=== PATIENT | female | born 2005 | race Caucasian/White ===

== ENCOUNTER → 2025-04-21 10:29 | Outpatient (CLI) | payer OTHER, SELFPAY ==
[2025-04-21 10:59] LABS: Add Manual Diff / Slide Review NO; Basophils Absolute Auto 0 /uL (0-100); Basophils Percent Auto 0.4 % (0-2); Eosinophils Absolute Auto 200 /uL (0-450); Hematocrit 40.1 % (36-46); Hemoglobin 13.6 g/dL (12.0-16.0); Lymphocytes Absolute Auto 2100 /uL (1100-4500); Lymphocytes Percent Auto 34.8 % (25-40); Mean Corpuscular HGB Conc 33.9 % (30-36); Mean Corpuscular Hemoglobin 30.8 PG (26-34); Mean Corpuscular Volume 90.7 fL (80-100); Monocytes Absolute Auto 700 /uL (0-900); Monocytes Percent Auto 11.3 % (3-14); Neutrophils Absolute Auto 3000 /uL (1500-7000); Neutrophils Percent Auto 50.5 % (50-75); Platelet Count 315 X10^3/uL (150-400); Red Blood Cell Count 4.42 X10^6/uL (4.0-5.2); Red Cell Distribution Width 13.1 % (11.6-14.8)
[2025-04-21 11:02] LABS: Appearance Urine UA SL CLOUDY; Bilirubin Urine UA NEGATIVE (NEGATIVE); Color Urine UA YELLOW; Glucose Urine UA NEGATIVE (Negative); Ketones Urine UA NEGATIVE (NEGATIVE); Leukocyte Esterase Urine UA 1+ (NEGATIVE); Nitrite Urine UA NEGATIVE (Negative); Occult Blood Urine UA NEGATIVE (Negative); Protein Urine UA NEGATIVE (Negative); Specific Gravity Urine UA <=1.005 (1.000-1.035); Urobilinogen Urine UA 0.2 E.U./dL (0.2)
[2025-04-21 11:05] LABS: Bacteria Urine Moderate (10-30); RBC Urine None Seen (0-5/HPF); Squamous Epithelial Cell Urine None Seen (0-5/HPF); Urine Volume 10mL (spun); WBC Urine 1-5/HPF (0-5/HPF)
[2025-04-21 12:07] LABS: Hepatitis B Surface Antigen NEGATIVE s/c (NEGATIVE)
[2025-04-21 12:25] LABS: HIV 1 & 2 Ab/Ag 4th Gen Combo NEGATIVE (NEGATIVE); Hep C Virus Ab w/Reflex Quant NEGATIVE s/c (NEGATIVE)
[2025-04-21 14:49] LABS: Rubella Antibody IgG 47.1 IU/mL (>15)
[2025-04-22 10:08] LABS: Varicella IgG Antibody Reactive (Non Reactive)
== END ==
PROVIDERS: Referring Provider Family Medicine; Visit Provider Family Medicine
DX: Z34.90 Encounter for supervision of normal pregnancy, unspecified, unspecified trimester (principal)
CPT/HCPCS: 36415; 80055; 81003; 81015; 86787; 86803; 86850; 86900; 86901; 87086; 87389

== ENCOUNTER → 2025-09-13 09:22 | Outpatient (CLI) | payer OTHER, SELFPAY ==
[2025-09-13 11:05] LABS: Add Manual Diff / Slide Review NO; Hematocrit 37.1 % (36-46); Hemoglobin 12.9 g/dL (12.0-16.0); Lymphocytes Absolute Auto 2200 /uL (1100-4500); Mean Corpuscular HGB Conc 34.7 % (30-36); Mean Corpuscular Hemoglobin 32.0 PG (26-34); Mean Corpuscular Volume 92.2 fL (80-100); Platelet Count 272 X10^3/uL (150-400)
[2025-09-13 11:22] LABS: GTT (PREG) 1 Hour PP 50gm Dose 110 mg/dL (76-139)
== END ==
PROVIDERS: Referring Provider Family Medicine; Visit Provider Family Medicine
DX: Z34.93 Encounter for supervision of normal pregnancy, unspecified, third trimester (principal); Z3A.28 28 weeks gestation of pregnancy
CPT/HCPCS: 36415; 82950; 85025

== ENCOUNTER 2025-10-13 20:12 | Emergency (ER) | payer OTHER, SELFPAY ==
[2025-10-13] VITALS (8 sets, daily range): BP systolic 111–133; BP diastolic 70–95; PULSE 74–107; RESP 15–23; TEMP 37; O2SAT 96–98; BMI 29.9
--- NOTE | 2025-10-13 20:25 | ED_ITS ---
HPI - Abdominal Pain General Chief Complaint: Nausea/Vomiting/Diarrhea Stated Complaint: vomiting blood, 45 minutes Time Seen by Provider: 10/13/25 20:16 History of Present Illness HPI narrative: 19-year-old 34 weeks estimated due date November 24 presents with nonbilious blood-tinged vomit that progressed initially as bright to being darker for the last 45 minutes. She reports having diarrhea last week but that has since resolved. Patient denies any loss of fluid, passing blood clot, or vaginal bleeding, fever, chills, back pain, abdominal pain, chest pain, shortness of breath, dyspnea on exertion. She is taking a multivitamin during the course of this but is not on any other medications or supplements. She has no other symptoms at this time. Other than what is stated 14 point review of system is negative. Related Data Previous Rx's ?Medication ?Instructions ?Recorded vit no.95-ferrous 1 tab PO DAILY #90 tabs 04/04 fumarate 28 mg-folic acid 800 mcg tablet ondansetron HCl 4 mg tablet 4 mg PO Q8H PRN nausea and 10/13/25 vomiting #30 tabs Allergies Allergy/AdvReac Type Severity Reaction Status Date / Time No Known Drug Allergies Allergy Verified 10/13/25 20:24 Review of Systems Review of Systems ROS Unobtainable: All systems reviewed & are unremarkable except as noted in HPI and below Patient History Surgical History [place] teeth extracted Family History Mother Abnormal mammogram Father Hypertension Grandmother Diabetes mellitus Depression Anxiety Bipolar disorder Aunt Bipolar disorder Family/Other Bipolar disorder Social History marital status: number of children: 0 household members: spouse lives independently: Yes caregiver/support person: No housing: house pets and animals: Yes (dog) education level: college occupational status: student 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) special gladys needs: No travel history: over 6 months ago seatbelt use: sometimes helmet use: No (counseled on this) water heater temp set < 120 deg: Yes working smoke detector in home: Yes fire extinguisher in home: Yes carbon monox detector in home: Yes firearms in home: Yes firearms unloaded and locked: Yes do you feel safe at home: Yes Smoking Status: Never smoker Tobacco: How many years used: 4 quit status: has quit before second hand exposure: No alcohol intake: former substance use type: marijuana during the past year weight has: decreased > 10 lbs well-balanced diet: daily or most days daily servings fruits/ve or more times/day caffeine: Yes (down to single cup coffee in AM since becoming ) Type(s) of exercise: walking and resistance training frequency: 3-4 times per week Exam Narrative Exam Narrative: GENERAL: [19] year old patient appears stated age. Well-developed patient, in mild distress. HEAD: Atraumatic. Normocephalic. EYES: Pupils equal round and reactive. Extraocular motions intact. No scleral icterus. No injection or drainage. ENT: Nose without bleeding, purulent drainage. Throat without erythema, tonsillar hypertrophy or exudate. Airway patent. NECK: Trachea midline. Non tender CARDIOVASCULAR: Regular rate and rhythm without murmurs, gallops, or rubs. RESPIRATORY: Clear to auscultation. Breath sounds equal bilaterally. No wheezes, rales, or rhonchi. GASTROINTESTINAL: Abdomen soft, non-tender, nondistended. EXTREMITIES: No edema or joint tenderness. BACK: Nontender without deformity or crepitance. No flank tenderness. NEURO: AOx3. SKIN: No rash or erythema of visible areas Initial Vital Signs Initial Vital Signs: Vital Signs Pulse Rate 100 H 10/13/25 20:19 Pulse Oximetry 98 10/13/25 20:19 Course Orders Ordered: ED Orders 10/13/25 20:25 CBC Auto Diff [Complete Blood Count AUTO DIFF] Stat CMP [Comprehensive Metabolic Panel] Stat PT [Prothrombin Time INR] Stat Famotidine (Famotidine 20 Mg/2 Ml Vial) 20 mg IV NOW [place] Discontinued Medications Ondansetron HCl (Ondansetron 4 Mg/2 Ml Inj) 4 mg IV NOW ONE Stop: 10/13/25 20:28 Last Admin: 10/13/25 20:36 Dose: 4 mg Documented By: [facility] Vital Signs Vital signs: Vital Signs - 8 hr 10/13/25 20:19 10/13/25 20:20 10/13/25 20:20 Temperature Pulse Rate 100 H 103 H Respiratory Rate Blood Pressure 133/95 H Pulse Oximetry 98 98 Oxygen Delivery Method 10/13/25 20:24 10/13/25 20:30 10/13/25 20:32 Temperature 98.6 F Pulse Rate 107 H 88 Respiratory Rate 20 Blood Pressure 133/95 H 117/83 Pulse Oximetry 98 96 Oxygen Delivery Method Room Air 10/13/25 20:32 Temperature Pulse Rate 97 H Respiratory Rate 17 Blood Pressure Pulse Oximetry 96 Oxygen Delivery Method Room Air MDM - Abdominal Pain Lab Data 10/13/25 20:25 10/13/25 20:25 Labs: Lab Results 10/13/25 Range/Units 20:25 WBC 10.7 (4.5-11.0) X10^3/uL RBC 4.40 (4.0-5.2) X10^6/uL Hgb 13.9 (12.0-16.0) g/dL Hct 40.0 (36-46) % MCV 91.1 (80-100) fL MCH 31.7 (26-34) PG MCHC 34.8 (30-36) % RDW 12.9 (11.6-14.8) % Plt Count 261 (150-400) X10^3/uL Neut % (Auto) 54.9 (50-75) % Lymph % (Auto) 30.5 (25-40) % Valley % (Auto) 11.9 (3-14) % Eos % (Auto) 1.9 L (2-4) % Baso % (Auto) 0.8 (0-2) % Neut # (Auto) 5900 (6469-2320) /uL Lymph # (Auto) 3300 (5414-5497) /uL Valley # (Auto) 1300 H (0-900) /uL Eos # (Auto) 200 (0-450) /uL Baso # (Auto) 100 (0-100) /uL PT 10.0 (9.4-12.5) SECONDS INR 0.9 (0.9-1.3) Sodium 135 L (137-145) mmol/L Potassium 3.9 (3.4-5.1) mmol/L Chloride 107 (98-107) mmol/L Carbon Dioxide 20 L (22-32) mmol/L BUN 10 (7-17) mg/dL Creatinine 0.59 (0.52-1.04) mg/dL Estimated GFR > 60 (>60) mL/min BUN/Creatinine Ratio 16.9 (6-22) Glucose 91 (70-99) mg/dL Calcium 8.8 (8.4-10.2) mg/dL Total Bilirubin 0.2 (0.2-1.3) mg/dL AST 31 (14-36) IU/L ALT 27 (<35) IU/L Alkaline Phosphatase 110 (38-126) U/L Total Protein 6.8 (6.3-8.2) g/dL Albumin 3.6 (3.5-5.0) g/dL Globulin 3.2 (1.7-4.1) g/dL Albumin/Globulin Ratio 1.1 (1.0-2.8) MDM Narrative Medical decision making narrative: All lab work, vital signs, nurse triage note, medication list, previous ER visits, and all imaging studies reviewed. WBC 10.7 hemoglobin 13.9 platelet 261 INR point Na 135 potassium 3.9 chloride 107 CO2 20 BUN 10 creatinine 0.59. Patient given Zofran and Pepcid here. NST reactive Discharge Plan Departure Clinical Impression: Nausea & vomiting Instructions: Nausea and Vomiting-Adult Activity Restrictions/Additional Instructions: Return with new or worsening symptoms. Keep hydrated. Follow up with OBGYN at your next scheduled appointment. Take medicine as directed. Clear liquid diet advance as tolerated Prescriptions: New ondansetron HCl 4 mg tablet 4 mg PO Q8H PRN (Reason: nausea and vomiting) Qty: 30 0RF No Action PNV no.95-ferrous fumarate-FA 28 mg iron- 800 mcg tablet 1 tab PO DAILY Qty: 90 3RF Referrals: ProviderBenito [Primary Care Provider, [facility]]
[2025-10-13 20:35] LABS: Add Manual Diff / Slide Review NO; Hematocrit 40.0 % (36-46); Hemoglobin 13.9 g/dL (12.0-16.0); Lymphocytes Absolute Auto 3300 /uL (1100-4500); Mean Corpuscular HGB Conc 34.8 % (30-36); Mean Corpuscular Hemoglobin 31.7 PG (26-34); Mean Corpuscular Volume 91.1 fL (80-100); Platelet Count 261 X10^3/uL (150-400)
[2025-10-13] MEDS: ONDANSETRON 4 MG/2 ML INJ IV (20:36)
[2025-10-13 20:42] LABS: INR 0.9 (0.9-1.3); Prothrombin Time 10.0 SECONDS (9.4-12.5)
[2025-10-13 20:54] LABS: Alanine Aminotransferase 27 IU/L (<35); Albumin 3.6 g/dL (3.5-5.0); Albumin Globulin Ratio 1.1 (1.0-2.8); Alkaline Phosphatase 110 U/L (38-126); Blood Urea Nitrogen 10 mg/dL (7-17); Calcium 8.8 mg/dL (8.4-10.2); Carbon Dioxide 20 mmol/L (22-32); Chloride 107 mmol/L (98-107); Estimated Glomerular Filt Rate > 60 mL/min (>60); Globulin 3.2 g/dL (1.7-4.1); Glucose 91 mg/dL (70-99); HEMOLYSIS < 15 (0-50); Potassium 3.9 mmol/L (3.4-5.1); Sodium 135 mmol/L (137-145); Total Protein 6.8 g/dL (6.3-8.2)
--- NOTE | 2025-10-13 22:02 | PC.NURSE ---
Reactive NST obtained. Category 1 tracing , moderate variability, no decels noted, Accels present.
[2025-10-13] MEDS: FAMOTIDINE 20 MG/2 ML VIAL IV (22:04)
[2025-10-13] MEDS: ONDANSETRON 4 MG ODT SL (22:10)
== END 2025-10-13 22:19 | disposition home or self-care (01) ==
PROVIDERS: Emergency Provider Family Medicine
DX: O26.893 Other specified pregnancy related conditions, third trimester (principal); K92.0 Hematemesis; Z3A.34 34 weeks gestation of pregnancy
CPT/HCPCS: 80053; 85025; 85610; 96374; 99284; J2405

== ENCOUNTER → 2025-10-26 10:18 | Outpatient (CLI) | payer OTHER, SELFPAY ==
[2025-10-27 10:58] LABS: Strep Grp B PCR NEG for Grp B Strep
== END ==
PROVIDERS: Referring Provider Family Medicine; Visit Provider Family Medicine
DX: Z34.00 Encounter for supervision of normal first pregnancy, unspecified trimester (principal)
CPT/HCPCS: 87653